=== PATIENT | male | born 1965 | race Caucasian/White ===

== ENCOUNTER → 2020-09-10 | Outpatient (CLI) | payer OTHER ==
[~2020-09-10] MED LIST: ABILIFY MYCITE PO; ABILIFY15 MG PO; ADMELOG SO100 UNIT/1 SC; ADMELOG100 UNIT/1 SC; BASAGLAR K100 UNIT/1 SC; CALAN SR240 MG PO; CATAPRES0.3 MG PO; CEFUROXIME500 MG PO; CLONIDINE HCL0.2 MG PO; CYCLOBENZAPRINE10 MG PO; CYMBALTA60 MG PO; DRIZALMA SPRINK60 MG PO; ECOTRIN81 MG PO; GLIPIZIDE5 MG PO; IMODIUM CAP 2 MG2 MG PO; LISINOPRIL20 MG PO; LOPERAMIDE2 M1 PO; METFORMIN HCL500 MG PO; MIRTAZAPINE45 MG PO; PEPCID20 MG PO; PREDNISONE20 MG PO; PRINIVIL20 MG PO; PROAIR HFA8.5 GM INH; TAMIFLU 75 MG C75 MG PO; VERAPAMIL SR240 MG PO
== END ==
LOC: KOH-I 09-06 09:00
DX: R74.8 Abnormal levels of other serum enzymes (principal); K76.0 Fatty (change of) liver, not elsewhere classified; R16.1 Splenomegaly, not elsewhere classified
CPT/HCPCS: 76700

== ENCOUNTER → 2020-10-08 | Day surgery (SDC) | payer OTHER | END | disposition home or self-care (01) | LOC: OR 07:36 | DX: Z12.11 Encounter for screening for malignant neoplasm of colon (principal); D12.2 Benign neoplasm of ascending colon; K64.0 First degree hemorrhoids; K29.70 Gastritis, unspecified, without bleeding; B96.81 Helicobacter pylori [H. pylori] as the cause of diseases classified elsewhere; K74.60 Unspecified cirrhosis of liver; K75.81 Nonalcoholic steatohepatitis (NASH); K76.6 Portal hypertension; K31.89 Other diseases of stomach and duodenum; R16.1 Splenomegaly, not elsewhere classified; R94.5 Abnormal results of liver function studies; I10 Essential (primary) hypertension; J44.9 Chronic obstructive pulmonary disease, unspecified; K58.9 Irritable bowel syndrome, unspecified; E11.9 Type 2 diabetes mellitus without complications; F41.9 Anxiety disorder, unspecified; E66.8 Other obesity; Z68.34 Body mass index [BMI] 34.0-34.9, adult; Z87.891 Personal history of nicotine dependence; Z85.118 Personal history of other malignant neoplasm of bronchus and lung; Z79.82 Long term (current) use of aspirin; Z79.4 Long term (current) use of insulin; Z79.899 Other long term (current) drug therapy | CPT/HCPCS: 82962; J2704; J7040 ==